=== PATIENT | female | born 1930 | race Caucasian/White ===

== ENCOUNTER 2016-07-05 11:44 | Emergency (ER) | payer BC ==
--- NOTE | ~2016-07-05 | US85 ---
[facility] A Service of [facility] & [facility] RADIOLOGY TEXT RESULTS PATIENT: ISABELA AGUAYO LOCATION: [facility] : 30 UNIT #: [id number] AGE: [address]: Corazon Burleson MD SEX: F ORDER DR: [id number] [facility] [address] [place], [place] [address] [id number] E MR#: [id number] Acc #: [id number] NAME: ISABELA AGUAYO. : 1930 SEX: F STUDY DATE/TIME: 07/05/2016 17:12 UNIT: [facility] ROOM: STUDY DESCRIPTION: LE Veins [employer] Stdy Attending Physician: Corazon Burleson M.D. Ordering Physician: Kevin Rodrigez M.D. Primary Care Physician: Justin Huang M.D. MEDICAL IMAGING REPORT This report is preliminary unless electronic signature is present EXAM Unilateral right lower extremity venous Doppler. 07/05/2016 HISTORY Right leg pain for 3 weeks. Recent fall. TECHNIQUE Venous ultrasound examination of the right lower extremity was performed using grayscale, spectral Doppler and color flow Doppler imaging. FINDINGS The examination is negative. There is no evidence of right lower extremity deep venous thrombus from the groin to the lower calf. Visualized greater saphenous vein is also patent. IMPRESSION Negative examination. No evidence of right lower extremity deep venous thrombosis. Dictated by... Laci Padron M.D. THIS IS AN ELECTRONICALLY VERIFIED REPORT Laci Padron M.D. at 07/08/2016 5:07 PM LIZETH/olivia TD: 07/06/2016 12:25 JOB #: [id number] MEDICAL IMAGING REPORT COPY
--- NOTE | ~2016-07-05 | CT16 ---
[facility] A Service of [facility] / [facility] RADIOLOGY TEXT RESULTS PATIENT: ISABELA AGUAYO LOCATION: [facility] : 30 UNIT #: [id number] AGE: [address]: Corazon Burleson MD SEX: F ORDER DR: [id number] [facility] [address] [place], [place] [address] [id number] E MR#: [id number] Acc #: [id number] NAME: ISABELA AGUAYO. : 1930 SEX: F STUDY DATE/TIME: 07/05/2016 13:58 UNIT: [facility] ROOM: STUDY DESCRIPTION: CT Angio Chest for PE Attending Physician: Corazon Burleson M.D. Ordering Physician: Kevin Rodrigez M.D. Primary Care Physician: Justin Huang M.D. MEDICAL IMAGING REPORT This report is preliminary unless electronic signature is present EXAM CT angiography chest for PE. DATE OF EXAM 07/05/2016 HISTORY Chest pain, short of air since yesterday. TECHNIQUE CT pulmonary angiography performed with intravenous administration 80 mL Isovue-370. Three-dimensional reconstructions performed through the pulmonary arteries. NOTE: This CT exam was performed with one or more of the following radiation dose reduction techniques: automatic exposure control, adjustment of mA and/or kV according to patient size, and iterative reconstruction. COMPARISON 01/10/2015 FINDINGS The thyroid is notable for stable midline nodule extending into the superior mediastinum measuring about 1.6 cm x 1.1 cm. No change. Stability over this time frame favors benign etiology. Best fully characterized with elective thyroid ultrasound. No axillary, mediastinal or hilar adenopathy. Heart normal in size. Mitral annular calcifications. Coronary arterial calcifications. Aortic valvular calcifications. No pleural effusions. The liver shows a tiny segment 4 cyst unchanged from prior study. No suspicious focal hepatic abnormality. Visualized portions of spleen unremarkable. Pancreas, adrenal glands, upper renal poles unremarkable. Small hiatal hernia. Esophagus and stomach otherwise unremarkable. The visualized segments of small bowel and colon are unremarkable. Pulmonary parenchyma shows calcified [facility] A Service of [facility] RADIOLOGY TEXT RESULTS PATIENT: ISABELA AGUAYO LOCATION: [facility] #: [id number] : 30 UNIT #: [id number] AGE: [address]: Corazon Burleson MD SEX: F ORDER DR: jose right upper lobe. Areas of linear scarring right upper lobe, right lower lobe anteriorly. Right lung base posteriorly, in the periphery of the left lung base. There is no clear evidence of acute infectious or inflammatory disease in the lungs. There is a stable 3-4 mm noncalcified pulmonary nodule in the subpleural superior segment left lower lobe immediately adjacent to the major fissure. 4-5 mm noncalcified nodule in the right middle lobe. No change from prior examination. No change from a CT examination dated April 2014. Given its stability over a 2-year interval, is felt to be benign in nature. No new pulmonary nodules are seen. The pulmonary arteries are well opacified. No PE. The main pulmonary artery is prominent at 3.1 cm in diameter. Less pronounced on prior study when it was about 3.4 cm in diameter. Correlate with any clinical indications of pulmonary arterial hypertension. The aorta measures approximately 3.4 cm in diameter in the ascending aorta. No change. No dissection. Extensive atherosclerotic arterial calcifications. Prominent calcifications at the origin of the left common carotid artery and left subclavian artery. Luminal narrowing at origin of the left subclavian artery may be hemodynamically significant. 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 No change. 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 No change. Prominent calcific plaque in the visualized abdominal aorta. The bony structures show degenerative change in the spine. No clearly acute bony abnormality. IMPRESSION 1. No PE. There is mild prominence of the main pulmonary artery measuring approximately 3.1 cm in diameter. Decreased from prior examination in December 2014. Correlate with any clinical signs or symptoms of pulmonary arterial hypertension. 2. No aortic aneurysm or dissection. Extensive atherosclerotic arterial calcification in the systemic and coronary arteries. Similar appearance on prior study. See discussion above. 3. Mitral annular and aortic valvular calcifications. 4. There is no indication of acute infectious or inflammatory disease in the lungs. There are areas of linear scarring as described above. Stable 4-5 mm nodule in the periphery of the right middle lobe unchanged from April 2014, and felt to be benign in nature. 3-4 mm subpleural nodule anterior left lower lobe superior segment adjacent to major fissure unchanged from December 2014 and felt to be benign in nature. 5. Small hiatal hernia. 6. Status post cholecystectomy. Dictated by... Cory Ahn M.D. [facility]. [facility] A Service of [facility] & [facility] RADIOLOGY TEXT RESULTS PATIENT: ISABELA AGUAYO [id number] : 30 UNIT #: [id number] AGE: [address]: Corazon Burleson MD SEX: F ORDER DR: THIS IS AN ELECTRONICALLY VERIFIED REPORT Cory Ahn M.D. at 07/15/2016 2:09 PM LAISHA/say TD: 07/05/2016 22:35 JOB #: [id number] MEDICAL IMAGING REPORT COPY
--- NOTE | ~2016-07-05 | EKG ---
PATIENT: ISABELA AGUAYO UNIT #: [id number] Ventricular Rate: 97 BPM Atrial Rate: 97 BPM P-R Interval: 202 ms QRS Duration: 90 ms Q-T Interval: 362 ms QTC Calculation(Bezet): 459 ms P [place]: 44 degrees Calculated R [place]: 7 degrees Calculated T [place]: 52 degrees Diagnosis Line: Normal sinus rhythm Diagnosis Line: Normal ECG Diagnosis Line: When compared with ECG of 18-NOV-2015 17:33, Diagnosis Line: No significant change was found Diagnosis Line: Confirmed by GARY ALBARRAN MD ([id number]) on 07/05/2016 Diagnosis Line: 6:26:13 PM INTERPRETING MD: AVIS MEDRANO
--- NOTE | ~2016-07-05 | CR72 ---
[facility] A Service of [facility] RADIOLOGY TEXT RESULTS PATIENT: ISABELA AGUAYO LOCATION: [facility] : 30 UNIT #: [id number] AGE: [address]: Kevin Rodrigez MD SEX: F ORDER DR: [id number] [facility] [address] [place], [place] [address] [id number] E MR#: [id number] Acc #: [id number] NAME: ISABELA AGUAYO. : 1930 SEX: F STUDY DATE/TIME: 07/05/2016 UNIT: [facility] ROOM: STUDY DESCRIPTION: CR Chest Single View Portable Attending Physician: Kevin Rodrigez M.D. Ordering Physician: Kevin Rodrigez M.D. Primary Care Physician: Justin Huang M.D. MEDICAL IMAGING REPORT This report is preliminary unless electronic signature is present EXAM Chest, portable, 07/05/2016, 1119 hours. HISTORY Chronic chest congestion and shortness of air, worsening over the past week. History of hypertension. COMPARISON STUDIES 11/19/2015 FINDINGS Portable upright chest demonstrates normal heart size with stable, tortuous atherosclerotic descending thoracic aorta. The hilar contours are normal. The lungs are well-expanded and clear. There is no effusion or pneumothorax. IMPRESSION Stable chest film with normal heart size and stable, tortuous aorta. The lungs are clear, and there are no effusions. Dictated by... Kaelyn Klein M.D. THIS IS AN ELECTRONICALLY VERIFIED REPORT Kaelyn Klein M.D. at 07/05/2016 2:27 PM ASIM/larissa TD: 07/05/2016 13:29 JOB #: [id number] MEDICAL IMAGING REPORT [facility] A Service [facility] RADIOLOGY TEXT RESULTS PATIENT: ISABELA AGUAYO LOCATION: [facility] : 30 UNIT #: [id number] AGE: [address]: Kevin Rodrigez MD SEX: F ORDER DR: COPY
[2016-07-05 11:22] LABS: BASOPHIL# 0.1 X10e3 (0-0.3); BASOPHIL% 0.9 % (0-2.5); EOSINOPHIL# 0.1 X10e3 (0-0.7); EOSINOPHIL% 1.8 % (0.0-7.0); HEMOGLOBIN 12.4 gm/dL (12.0-16.0); LYMPHOCYTE# 1.7 X10e3 (1.0-3.5); LYMPHOCYTE% 26.4 % (17.0-45.0); MEAN CELL VOLUME 87.6 FL (83-96); MEAN CORPUSCULAR HEMOGLOBIN 28.5 PG (28-34); MEAN CORPUSCULAR HGB CONC 32.6 g/dL (30-36); MONOCYTE# 0.7 X10e3 (0-1.0); MONOCYTE% 10.5 % (3.0-12.0); NEUTROPHIL# 3.9 X10e3 (1.5-7.1); NEUTROPHIL% 60.4 % (40-75); PLATELET COUNT 243 X10e3 (140-420); RED BLOOD COUNT 4.33 X10e (3.90-5.30); WHITE BLOOD COUNT 6.4 X10e3 (4.0-10.5)
[2016-07-05 11:23] LABS: POC - CKMB 2.6 ng/mL (0.0-7.9); POC - TROPONIN <0.05 ng/mL (<=0.05)
[2016-07-05 11:29] LABS: DIFF IND NO
[2016-07-05 11:36] LABS: PARTIAL THROMBOPLASTIN TIME 27.1 SECONDS (23.5-31.3); PROTHROMBIN TIME (PATIENT) 10.5 SECONDS (9.6-11.5)
[~2016-07-05 11:44] MED LIST: ACETAMINOPHEN PO; ACETAMINOPHEN650 M3 PO; ADULT TUSS100 MG/5 M PO; ADVAIR; ADVAIR PO; AGGRENOX1 CAP PO; ALBUTEROL SULFAT8 MG INH; ALBUTEROL0.83 MG/ML IH; ALBUTEROL0.83 MG/ML INH; ALDACTONE25 MG PO; ALL DAY ALLERGY10 M3 PO; ALLERGY RELIEF10 MG PO; APRESOLINE PO; ASPIRIN EC81 M1 PO; ASPIRIN PO; ASPIRIN81 M1 PO; ASPIRIN81 M2 PO; AZOR PO; BACTROBAN22 GM TP; BAYER CHEWABLE81 MG PO; BENZONATATE PO; CELEBREX PO; CELEBREX400 MG PO; CIPRO PO; CLARITIN10 M2 PO; CLEOCIN PO; CLOPIDOGREL BIS75 MG PO; CLOPIDOGREL75 MG PO; COREG PO; COREG6.25 M1 PO; COREG6.25 MG PO; COZAAR PO; COZAAR100 MG PO; DELTASONE20 MG PO; DUONEB 2.5-0.5 M3 ML NEB; FISH OIL 1,001000 M1 PO; FLEXERIL10 MG PO; FLONASE 0.05% N16 G1; FLORASTOR250 M1 PO; FLOVENT DI50 MCG/DIS IH; FLUOXETINE HCL20 M1 PO; FUROSEMIDE40 MG PO; GABAPENTIN300 M2 PO; GABAPENTIN300 MG PO; GUAIFENESIN LA600 M1 PO; HCTZ PO; HYDRALAZINE HCL25 MG PO; HYDRALAZINE HCL50 MG PO; HYDROCODON-ACE1 EAC9 PO; HYDROCODONE-APA1 T58 PO; IMDUR-ER30 M1 PO; KCL PO; KLONOPIN PO; KLONOPIN0.5 MG PO; KLOR-CON PO; LASIX20 MG PO; LEVAQUIN PO; LEVAQUIN750 MG PO; LIPITOR40 MG PO; LIPITOR80 MG PO; LISINOPRIL20 MG PO; LOPRESSOR PO; LOPRESSOR100 MG PO; LORTAB 10-5001 EACH PO; LORTAB 101 TAB 10/5 PO; LORTAB 7.5-5001 TAB PO; LOTREL 10/20 MG1 CAP PO; MACROBID100 MG PO; MEDROL4 MG/DOSE- PO; MELOXICAM15 MG PO; METOPROLOL SUCC50 MG PO; METOPROLOL TAR25 MG PO; METOPROLOL TART25 MG PO; MOBIC PO; MOBIC15 MG PO; NABUMETONE500 MG PO; NEURONTIN300 MG PO; NEXIUM PO; NEXIUM20 MG PO; NIFEDICAL PO; NITROGLYCERIN0.4 MG SL; NITROGLYGERIN0.4 MG SL; NITROGYLCERIN SUBLINGUAL; NITROSTAT0.4 MG SL; NORCO 5/325 TAB1 TAB PO; NORCO1 TAB 10/3 PO; PANTOPRAZOLE SO40 MG PO; PERCOCET10 PO; PHENERGAN PO; PLAVIX PO; POTASSIUM CHLO10 ME1 PO; PRAVACHOL20 MG PO; PRAVASTATIN SOD40 MG PO; PREDNISONE PO; PREDNISONE10 MG PO; PRINIVIL40 MG PO; PROAIR HFA8.5 GM IH; PROAIR HFA8.5 GM INH; PROTONIX PO; PROZAC PO; ROBITUSSIN COU118 ML PO; ROBITUSSIN-DM120 ML PO; SYMBICORT INH; TIZANIDINE HCL4 M1 PO; TOPROL XL 50 MG50 M1 PO; TRIAMTERENE/HCTZ; TYLOX1 CAP 5/50 DOB; UNKNOWN ANTIBIOTIC; UNKNOWN BP MED; VALACYCLOVIR1000 MG PO; VIBRAMYCIN100 M1 PO; VITAMIN C250 M1 PO; VITAMIN D250000 UNIT PO; VITAMIN D400 UNI1 PO; VITAMIN D50000 UNIT PO; ZESTORETIC 20/21 TAB PO; ZITHROMAX PO; ZOCOR PO; ZOFRAN PO; ZOFRAN8 MG PO; ZOLOFT PO
[2016-07-05 11:57] LABS: ALBUMIN SERUM 3.9 g/dL (3.5-5.0); BILIRUBIN, DIRECT 0.1 mg/dL (0.0-0.2); BILIRUBIN,INDIRECT 0.5 mg/dL (0.0-0.9); BILIRUBIN,TOTAL 0.6 mg/dL (0.2-2.0); BUN/CREATININE RATIO 12.72; CALCIUM SERUM 8.9 mg/dL (8.4-10.2); CREATININE SERUM 1.1 mg/dL (0.6-1.4); GLOM FILT RATE Estimated 50.2 mL/min (>60); POTASSIUM 3.6 mmol/L (3.5-5.1); PROTEIN TOTAL SERUM 7.3 g/dL (6.0-8.3)
[2016-07-05 13:00] LABS: POC - CKMB 2.1 ng/mL (0.0-7.9); POC - TROPONIN <0.05 ng/mL (<=0.05)
[2016-07-05] MEDS ORDERED: ALBUTEROL2.5 MG/0.5 INH (14:37)
[2016-07-05] MEDS ORDERED: ASPIRIN81 MG PO (14:38)
[2016-07-05] MEDS ORDERED: ATORVASTATIN CA80 MG PO (14:39)
[2016-07-05] MEDS ORDERED: CARVEDILOL6.25 MG PO (14:39)
[2016-07-05] MEDS ORDERED: CLOPIDOGREL75 MG PO (14:40)
[2016-07-05] MEDS ORDERED: FLONASE 0.05% N16 G1 (14:43)
[2016-07-05] MEDS ORDERED: FUROSEMIDE40 MG PO (14:43)
[2016-07-05] MEDS ORDERED: IMDUR-ER30 M2 PO (14:44)
[2016-07-05] MEDS ORDERED: LOSARTAN POTASS50 MG PO (14:45)
[2016-07-05] MEDS ORDERED: CLARITIN10 M2 PO (14:45)
[2016-07-05] MEDS ORDERED: MOBIC15 MG PO (14:46)
[2016-07-05] MEDS ORDERED: NITROGLYCERIN0.4 MG SL (14:46)
[2016-07-05] MEDS ORDERED: ALDACTONE PO (14:47)
[2016-07-05] MEDS ORDERED: PANTOPRAZOLE SO40 MG PO (14:47)
[2016-07-05] MEDS ORDERED: SYMBICORT 16010.2 GM INH (14:48)
[2016-07-05] MEDS ORDERED: VITAMIN D250000 UNIT PO (14:49)
[2016-07-05] MEDS ORDERED: HYDROCODON-ACE1 EAC7 PO (14:50)
== END 2016-07-05 18:57 | disposition home or self-care (01) ==
LOC: CED 11:44
PROVIDERS: Emergency Medicine
DX: J44.1 Chronic obstructive pulmonary disease with (acute) exacerbation (principal); M79.604 Pain in right leg; I25.10 Atherosclerotic heart disease of native coronary artery without angina pectoris; Z88.0 Allergy status to penicillin; Z88.2 Allergy status to sulfonamides; Z91.040 Latex allergy status
CPT/HCPCS: 36415; 71010; 71275; 80048; 80076; 82553; 83605; 83880; 84484; 85025; 85379; 85610; 85730; 87040; 93005; 93971; 94640; 96360; 99284; Q9967

== ENCOUNTER → 2016-11-18 | Outpatient (CLI) | payer BC ==
[~2016-11-18] MED LIST changes: +ALBUTEROL2.5 MG/0.5 INH; +ALDACTONE PO; +ASPIRIN81 MG PO; +ATORVASTATIN CA80 MG PO; +CARVEDILOL6.25 MG PO; +HYDROCODON-ACE1 EAC7 PO; +IMDUR-ER30 M2 PO; +LOSARTAN POTASS50 MG PO; +SYMBICORT 16010.2 GM INH
--- NOTE | ~2016-11-18 | US85 ---
[facility]. [facility] A Service of [facility] & [facility] / [facility] RADIOLOGY TEXT RESULTS PATIENT: ISABELA AGUAYO LOCATION: [facility] : 30 UNIT #: [id number] AGE: [address]: JUSTIN REYES MD SEX: F ORDER DR: [id number] [address] [address] [id number] O MR#: [id number] Acc #: [id number] NAME: ISABELA AGUAYO : 1930 SEX: F STUDY DATE/TIME: 11/18/2016 14:07 UNIT: [facility] ROOM: STUDY DESCRIPTION: [facility] [employer] Stdy Attending Physician: Justin Reyes M.D. Referring Physician: Justin Reyes M.D. Ordering Physician: Justin Reyes M.D. Primary Care Physician: Justin Reyes M.D. MEDICAL IMAGING REPORT This report is preliminary unless electronic signature is present. EXAM Right lower extremity venous Doppler REASON FOR EXAM Pain in right leg. FINDINGS The right common femoral vein, femoral vein, popliteal vein, tibial veins demonstrate patency and compressibility. There is phasic and spontaneous flow with respiration and augmentation. Proximal and distal greater saphenous vein are patent and compressible. IMPRESSION No evidence of right lower extremity deep vein thrombosis. Dictated by... Gregory Ni M.D. THIS IS AN ELECTRONICALLY VERIFIED REPORT Gregory Ni M.D. at 11/20/2016 10:34 AM Mario TD: 11/19/2016 03:00 JOB #: [id number] MEDICAL IMAGING REPORT Page 1 of 1
== END | disposition home or self-care (01) ==
LOC: SNIV 14:00
DX: M79.604 Pain in right leg (principal)
CPT/HCPCS: 93971

== ENCOUNTER 2017-01-04 22:04 | Emergency (ER) | payer BC ==
[~2017-01-04] VITALS: Ht 162.6 cm; Wt 77.1 kg
== END 2017-01-04 23:30 | disposition home or self-care (01) ==
LOC: CED 22:04
DX: L03.114 Cellulitis of left upper limb (principal); I11.0 Hypertensive heart disease with heart failure; I50.9 Heart failure, unspecified; J45.909 Unspecified asthma, uncomplicated; Z90.49 Acquired absence of other specified parts of digestive tract; Z88.0 Allergy status to penicillin; Z88.2 Allergy status to sulfonamides; Z91.040 Latex allergy status; Z79.82 Long term (current) use of aspirin; Z79.899 Other long term (current) drug therapy; Z79.01 Long term (current) use of anticoagulants
CPT/HCPCS: 99284